=== PATIENT | female | born 1955 | race Caucasian/White ===

== ENCOUNTER 2017-10-11 22:30 | Emergency (ER) | payer BC ==
[~2017-10-11] VITALS: Ht 170.2 cm; Wt 72.6 kg
[2017-10-11 23:28] VITALS: BP_SYST 144
--- NOTE | 2017-10-11 23:33 | NUR ---
Placed in room 07 . 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 To gown for exam. Side rails up. Report given to ANDRÉS James.
--- NOTE | 2017-10-11 23:35 | NUR ---
Patient arrived to ED a/o x 4 with c/o migraine MALONEY x 2 days. Patient reports history of migraines. Patient reports running out of prescription for sumatriptan. Patient presents with 8/10 pain. Reports Nausea, without vomiting. C/O light sensitivity. Pupils PERRL. Will continue to monitor.
--- NOTE | 2017-10-11 23:50 | NUR ---
ED MD Anguiano at bedside for medical evaluation.
[2017-10-12] MEDS ORDERED: ONDANSETRON 4 MG ODT TAB PO ONE (00:30)
[2017-10-12] MEDS ORDERED: SUMAtriptan SUCCINATE 6 MG/0.5 ML VIAL SUBCUT ONE (00:30)
--- NOTE | 2017-10-12 00:30 | NUR ---
ED MD Skinnerek at bedside reassessing patient.
[2017-10-12 00:40] VITALS: BP_SYST 137
--- NOTE | 2017-10-12 00:40 | NUR ---
Patient given written and verbal discharge instructions and verbalizes understanding. ER MD discussed with patient the results and treatment provided. Patient in stable condition. ID arm band removed. No Rx given. Patient educated on pain management and to follow up with PMD. Pain Scale 0/10 at this time. Opportunity for questions provided and answered.
== END 2017-10-12 00:40 | disposition home or self-care (01) ==
LOC: SED 23:20
DX: G43.909 Migraine, unspecified, not intractable, without status migrainosus (principal); E03.9 Hypothyroidism, unspecified; Z88.2 Allergy status to sulfonamides
CPT/HCPCS: 96372; 99283; J3030; Q0162